=== PATIENT | male | born 1990 | race Caucasian/White ===

== ENCOUNTER 2024-06-13 11:55 | Emergency (ER) | payer BC, SELFPAY ==
[2024-06-13 11:55] VITALS: BP 134/86; PULSE 114; RESP 18; TEMP 36.8; O2SAT 99; BMI 45.4
--- NOTE | 2024-06-13 12:20 | PC.NURSE ---
DR GASPAR AT BEDSIDE
[2024-06-13 12:26] LABS: Basophils % 0.2 % (0.1-2.0); Eosinophils # 0.1 K/mm3 (0.0-0.4); Eosinophils % 0.7 % (0.1-12.0); Hematocrit 45.5 % (42.0-52.0); Hemoglobin 15.1 g/dL (14.1-18.0); Lymphocytes # 0.6 K/mm3 (0.7-4.5); Lymphocytes % 4.5 % (10-50); Mean Corpuscular HGB Conc 33.3 g/dL (31.8-35.4); Mean Corpuscular Hemoglobin 29.5 pg (27.0-31.2); Mean Corpuscular Volume 88.5 fl (80-94); Mean Platelet Volume 9.4 fl (7.4-10.4); Monocytes # 0.4 K/mm3 (0.1-1.0); Monocytes % 2.8 % (1.7-9.3); Neutrophils # 11.4 K/mm3 (1.8-7.8); Neutrophils % 91.8 % (37.0-80.0); Platelet Count 231 K/mm3 (142-424); Red Blood Count 5.13 M/mm3 (4.60-6.20); Red Cell Distribution Width 14.3 % (11.5-17.5); White Blood Count 12.5 K/mm3 (4.8-10.8)
[2024-06-13 12:29] LABS: MANUAL DIFFERENTIAL MANUAL DIFFERENTIAL (MANUAL DIFF)
[2024-06-13 12:35] VITALS: PULSE 105; O2SAT 97
[2024-06-13 12:35] LABS: Lactic Acid 1.7 mmol/L (0.7-2.1)
[2024-06-13 12:36] LABS: D-Dimer 0.72 ug/mL (0.0-0.5)
--- NOTE | 2024-06-13 12:37 | CA_ITS ---
FINAL REPORT TECHNIQUE: Color Doppler, duplex Doppler and compression sonography of the right lower extremity venous system was performed. CLINICAL HISTORY: swelling/redness/pain HX- reoccurring cellulitis FINDINGS: There is no evidence of deep venous thrombosis from the level of the groin to the calf. The veins are patent and compressible. There is a 2.9 cm presumed right inguinal node which is nonspecific, may be reactive or neoplastic. IMPRESSION: No evidence of deep venous thrombosis right lower extremity. Nonspecific right inguinal node, may be reactive or neoplastic. Reviewed, Interpreted and Dictated by Memo Saucedo III, MD Transcribed by Chasity Collins Authenticated and [facility]
--- NOTE | 2024-06-13 12:45 | PC.NURSE ---
PT PLACED IN GOWN FOR DOPPLER
[2024-06-13 13:04] LABS: Lymphocytes % 2 % (10-50); Monocytes % 7 % (2-9); Neutrophils % 91 % (42-76); Total Cells Counted 100
[2024-06-13 13:05] LABS: Platelet Estimate Normal; RBC Morphology Normal
--- NOTE | 2024-06-13 13:11 | HMH.EDGENADL ---
Discharge Plan Disposition Patient Disposition: Home, Self-Care Condition: Good Referrals Follow up/Referrals: Deniz Rob [Primary Care Provider] - See instructions Activity Restrictions/Add. Instructions Additional Instructions/Restrictions: You were evaluated in the emergency department today. You were given a dose of IV medication called Dalvance which is a strong antibiotic that is long-acting. Please stop taking your other antibiotics at home. Follow-up right away with your primary care provider for reassessment. Note that we did send blood cultures, which are pending. Will call you if these come back positive. Please follow-up closely with your primary care provider over the next 48 hours for reassessment of your skin. Return to the emergency department right away for new or worsening symptoms. Take Tylenol and ibuprofen at home every 4-6 hours as needed for pain. Clinical Impressions Clinical Impression: Cellulitis of leg, right Stand Alone Forms Stand Alone Forms: Work/School Release Instructions Patient Instructions: DI for Cellulitis -- Adult Print Language Print Language: Korean Discharge ED Provider: Karen Andre General Adult HPI General Chief complaint: Skin/Abscess/Foreign Body Stated complaint: celcutitis Time Seen by Provider: 06/13/24 12:07 Mode of Arrival: Ambulatory Source of Information: Patient Limitations: No Limitations Description of Symptoms (Recalled from ER Triage Doc. by RN): PT REPORTS WORSENING OF REDNESS AND SWELLING TO RIGHT LOWER EXTREMITY SINCE WEDNESDAY. CURRENTLY ON BACTRIM. 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 He started Bactrim on Wednesday, but the symptoms are not improving. Given this, he is coming in for further evaluation and management. He denies having to be admitted in the past for hospitalization for IV antibiotics. He also denies any chest pain, shortness of breath, abdominal pain, vomiting, or other concerns Related Data Allergies Allergy/AdvReac Type Severity Reaction Status Date / Time Chloral Hydrate Allergy Unknown Uncoded 09/28/17 15:24 [facility] Disclaimer: The information contained in this section may have been updated after the patient was seen, as this information can be updated by other users. Social History Smoking Status: Never smoker alcohol intake: never current occupational status: employed Travel in the last 8 weeks: None ROS Obtained: Yes All systems reviewed & no additional complaints except as documented Physical Exam General General appearance: alert and in no apparent distress Head Head exam: atraumatic and normocephalic Eye Eye exam: Present normal appearance, PERRL and EOMI ENT ENT exam: Present normal exam, normal oropharynx, mucous membranes moist and normal external ear exam Neck Neck exam: Present normal inspection, full ROM and trachea midline; Absent tenderness Chest Chest inspection: Present normal inspection and symmetric chest wall rise; Absent tenderness Respiratory Respiratory exam: Present normal lung sounds bilaterally; Absent respiratory distress, wheezes, stridor or accessory muscle use Cardiovascular Cardiovascular exam: Present normal rhythm and tachycardia Abdominal Exam Abdominal exam: Present soft; Absent distention, tenderness or guarding Extremities Exam Extremities exam: Present full ROM, tenderness, normal capillary refill, edema and other (Redness, warmth, and swelling to the right lower extremity. All compartments soft. Neurovascularly intact distally. No large open wounds. No palpable crepitus) Back Exam Back exam: Present normal inspection and full ROM; Absent tenderness Neurological Exam Neurological exam: Present alert, oriented X3, CN II-XII intact and normal gait; Absent motor sensory deficit Psychiatric Psychiatric exam: Present normal affect and normal mood Skin Skin exam: Present warm and dry Medical Decision Making Medical Records Medical records reviewed: Yes I reviewed the patient's medical records. Jadiel Inquiry Pt receiving controlled substance: No Vital Signs: 06/13/24 11:55 06/13/24 12:35 06/13/24 14:25 Temperature 98.2 F 98.4 F Temperature Source Oral Oral Pulse Rate 105 H 63 Pulse Rate [Radial] 114 H Respiratory Rate 18 18 Blood Pressure 119/74 Blood Pressure [Left Arm] 134/86 Blood Pressure Mean [Left Arm] 102 Blood Pressure Source Automatic Cuff Blood Pressure Source [Left Arm] Automatic Cuff Blood Pressure Position Sitting Blood Pressure Position [Left Arm] Sitting 02 Sat by Pulse Oximetry 99 97 Oxygen Delivery Method Room Air Room Air Room Air Lab Data Lab results reviewed: Yes I reviewed the patient's lab results. Lab Results 06/13/24 12:10: WBC 12.5 H, RBC 5.13, Hgb 15.1, Hct 45.5, MCV 88.5, MCH 29.5, MCHC 33.3, RDW 14.3, Plt Count 231, MPV 9.4, Neut % (Auto) 91.8 H, Lymph % (Auto) 4.5 L, Luna % (Auto) 2.8, Eos % (Auto) 0.7, Baso % (Auto) 0.2, Neut # (Auto) 11.4 H, Lymph # (Auto) 0.6 L, Luna # (Auto) 0.4, Eos # (Auto) 0.1, Baso # (Auto) 0.0, Total Counted 100, Neutrophils % (Manual) 91 H, Lymphocytes % (Manual) 2 L, Monocytes % (Manual) 7, Platelet Estimate Normal, RBC Morphology Normal, D-Dimer 0.72 H, Sodium 134 L, Potassium 3.7, Chloride 105, Carbon Dioxide 21 L, Anion Gap 11.7, BUN 24 H, Creatinine 1.50 H, Estimated Creat Clear 77, Estimated GFR 54 L, Est GFR ( Amer) 65, Glucose 122 H, Lactate 1.7, Calcium 9.0, Total Bilirubin 1.4 H, AST 27, ALT 31, Alkaline Phosphatase 63, C-Reactive Protein > 320.0 H, Total Protein 7.5, Albumin 3.9, Globulin 3.6 H, Albumin/Globulin Ratio 1.1, Procalcitonin 3.54 H 06/13/24 12:10 06/13/24 12:10 Orders (Tests/Meds): ED MEDICATIONS Discontinued Medications Generic Name Dose Route Start Last Admin Trade Name Vonq PRN Reason Stop Dose Admin Lactated Ringer's 1,000 mls @ 999 mls/hr 06/13/24 12:50 06/13/24 13:27 Lactated Ringer's 1000 Ml Bag IV 06/13/24 13:50 999 mls/hr .Q1H1M ONE Administration Dalbavancin 1,500 mg/ Dextrose 250 mls @ 500 mls/hr 06/13/24 13:36 06/13/24 13:56 IV 06/13/24 13:37 500 mls/hr ONCE ONE Administration ORDERS Category Date Time Status CRP [C-Reactive Protein] Stat Lab 06/13/24 12:10 Completed Complete Blood Count Auto Diff Stat Lab 06/13/24 12:10 Completed Comprehensive Metabolic Panel Stat Lab 06/13/24 12:10 Completed D-Dimer Stat Lab 06/13/24 12:10 Completed Lactic Acid Stat Lab 06/13/24 12:10 Completed Procalcitonin Stat Lab 06/13/24 12:10 Completed Blood Culture Stat Micro 06/13/24 12:10 Received CA venous doppler LE RT Stat Y 06/13/24 12:37 Completed Medical Decision Narrative: In summary, this patient is a 33-year-old male presenting to the Emergency Department for evaluation of right lower extremity swelling, redness, warmth, fevers, and chills. Differential diagnoses considered include but are not limited to cellulitis, sepsis, bacteremia, abscess, NSTI. Ruling out the most morbid conditions drove assessment. It should be noted patient's history includes recurrent right lower extremity infection which are not at goal therapy. This complicates all aspects of care by increasing patient's risk for morbidity. On exam, the patient is nontoxic-appearing. He is mildly tachycardic, but otherwise vitals are reassuring. He has significant redness, warmth, and swelling to the right lower leg, but his mom states that this is not as bad as prior infections that he had in the past. He has been on Bactrim now for 2 and half days. No palpable crepitus. No appreciable abscess or open wound. He is neurovascularly intact distally. Workup included CBC, CMP, lactic acid, blood cultures, CRP, procalcitonin, D-dimer. D-dimer was elevated, so DVT ultrasound was ordered.. I independently interpreted DVT ultrasound prior to the radiologist read and noted no acute clot. Please see their read for final interpretation. Labs were obtained that demonstrated mild leukocytosis with elevated inflammatory markers. Lactic acid is normal. On reassessment, the patient is resting comfortably. Ultimately, I considered admission for failed outpatient treatment of cellulitis with Bactrim, however after shared decision-making with the patient and family they would like to try going home instead. Given this, patient was given dose of IV Dalvance. Patient was given instructions for close follow-up with primary care for wound recheck as well as instructions for strict return precautions. He was discharged after all questions were answered. Critical Care Critical Care Time Critical Care Time: No
[2024-06-13] MEDS: LACTATED RINGERS 1000ML 1,000 ML 999 ML IV (13:27)
[2024-06-13 13:48] LABS: Alanine Aminotransferase 31 U/L (12-78); Albumin Level 3.9 g/dl (3.5-5.0); Albumin/Globulin Ratio 1.1 (1.1-1.8); Alkaline Phosphatase 63 U/L (38-126); Anion Gap 11.7 mEq/L (5-15); Aspartate Amino Transferase 27 U/L (17-59); Bilirubin,Total 1.4 mg/dl (0.2-1.3); Blood Urea Nitrogen 24 mg/dl (9-20); Carbon Dioxide 21 mmol/L (22.0-30.0); Chloride 105 mmol/L (98-107); Creatinine Clearance Estimated 77 mL/min (50-200); Estimated Glomerular Filt Rate 54 ml/min (>60); GFR (African American) 65 ML/MIN (>60); Globulin 3.6 g/dL (1.3-3.2); Glucose 122 mg/dl (74-100); Potassium 3.7 mmoL/L (3.5-5.1); Sodium 134 mmol/L (136-145); Total Protein,Serum 7.5 g/dl (6.3-8.2)
[2024-06-13 13:54] LABS: C-Reactive Protein > 320.0 mg/L (0-4)
[2024-06-13] MEDS: DALBAVANCIN HCL 1,500 MG in DEXTROSE 5 % IN WATER 250 ML 500 MG IV (13:56)
[2024-06-13 14:06] LABS: Procalcitonin 3.54 ng/mL (0.0-2.0)
[2024-06-13 14:25] VITALS: BP 119/74; PULSE 63; RESP 18; TEMP 36.9; O2SAT 96
== END 2024-06-13 14:25 | disposition home or self-care (01) ==
PROVIDERS: Emergency Provider Emergency Medicine; PCP Internal Medicine
DX: L03.115 Cellulitis of right lower limb (principal); R50.9 Fever, unspecified; R00.0 Tachycardia, unspecified
CPT/HCPCS: 80053; 83605; 84145; 85007; 85025; 85027; 85378; 86140; 87040; 93971; 96361; 96374; 99285; J0875; J7060; J7120